=== PATIENT | male | born 1995 | race African-American/Black ===

== ENCOUNTER 2025-05-03 11:25 | Outpatient (REF) | payer MEDICAID, SELFPAY ==
[2025-05-03 13:49] LABS: Anion Gap 9 (12-20); Blood Urea Nitrogen 13 mg/dL (9-16); Calcium 9.8 mg/dL (8.4-10.2); Carbon Dioxide 29 mmol/L (22-29); Chloride 109 mmol/L (96-108); Estimated Glomerular Filt Rate > 60; Potassium 4.4 mmol/L (3.3-5.1); Sodium 143 mmol/L (135-145)
[2025-05-03 14:09] LABS: HBS Num1 5.78 mIU/mL (0-7.99); HBc Num1 0.07 S/CO (0.00-0.79); HBsAGNum1 0.31 S/CO (0.00-0.99); HIV Num 1 0.05 S/CO (0.00-0.99); Hepatitis B Surface Antigen Negative (Negative); Syphilis Screen Reactive (Nonreactive); ~HepC Num1 0.11 S/CO (0.00-0.79); ~Hepatitis B Surface Antibody NONREACTIVE (Nonreactive); ~Hepatitis C Antibody Nonreactive (Nonreactive)
[2025-05-09 14:53] LABS: T.Pallidum Particle Agg Test Reactive (Nonreactive)
== END 2025-05-03 11:26 | disposition home or self-care (01) ==
LOC: HO.HHCL 11:25
PROVIDERS: PCP Nurse Practitioner; Visit Provider Nurse Practitioner
DX: Z11.59 Encounter for screening for other viral diseases (principal); Z11.4 Encounter for screening for human immunodeficiency virus [HIV]; Z11.3 Encounter for screening for infections with a predominantly sexual mode of transmission; K14.8 Other diseases of tongue
CPT/HCPCS: 36415; 80048; 86592; 86704; 86706; 86780; 86803; 87340; 87389

== ENCOUNTER 2025-07-06 15:00 | Outpatient (REF) | payer MEDICAID, SELFPAY ==
--- OUTSIDE RECORDS SUMMARY | 2025-07-04 14:45 | XMS_ITS | Encounter Summary ---
Author Organization [employer] Address [address] [facility] [address] [place] [id number] Care Team Providers Care Database Administrator Name Role Phone Unavailable Primary Care Provider Unavailabl e Reason for Referral * Consultation (Routine) - Authorized Specialty Diagnoses / Procedures Referred By Contac t Referred To Contact Dental Director Of Assisted Living / Dentistry Diagnoses Healthcare maintenance Tad Owen MD [address] [place] [phone] Phone: tel: fax: Referral ID Status Reason Start Date Expiration Date Visits Requested Visits Authorized [id number] Authorized Consult and Treat 07/06/2025 07/06/2026 1 1 Encounter Details Date Type Department Care Team (Late st Contact Info) Description 07/04/2025 2:45 PM EDT Office Visit [facility] [address] [place] [address] [phone] Tad Owen MD [address] [place] [phone] RPR positive (Primary Dx); Encounter for immunization; Primary syphilis; Healthcare maintenance; Marijuana use Social History Tobacco Use Types Packs/Day Years Used Date Smoking Tobacco: Never Passive Smoke Exposure: Never Smokeless Tobacco: Never Alcohol Answer Date Recorded How often do you have a drink containing alcohol ? 1 05/03/2025 How many drinks containing a lcohol do you have on a typical day when you are drinking? 0 05/03/2025 How often do you have six or more drinks on one occasion? 0 05/03/2025 Depression Answer Date Recorded Patient Health Questionnaire-9 Score 1 07/04/2025 Patient Health Questionnaire-9 Score 1 07/04/2025 Last PHQ-9: Questionnaire Data Not on file 1 Housing Stability Answer Date Recorded What is your housing situation today? I have kathy espinoza 07/04/[address] you li ve. Do you have problems with any of the following? None of the above 07/04/2025 Food Insecurity Answer Date Recorded Within the past 12 months, y ou worried that your food would run out before you got money to buy more: Never True 07/04/2025 Within the past 12 months,th e food you bought just didn't last and you didn't have enough money to get more: Never True 10/2024 Transportation Answer Date Recorded In the past 12 months, has l ack of transportation kept you from medical appts, meetings, work or from getting things needed for daily living? No 07/04/2025 Utilities Answer Date Recorded In the past 12 months, has t he electric, gas, oil or water company threatened to shut off services in your home? No 07/04/2025 Depression Answer Date Recorded Patient Health Questionnaire-2 Score 0 07/04/2025 Internet Access Answer Date Recorded Internet Access Q1 Yes 07/04/2025 Internet Access Q2 Not on file 07/04/2025 Sex and Gender Information Value Date Recorded Sex Assigned at Male 09/14/2024 1:02 PM EST Legal Sex Male 11:24 AM EDT Gender Identity Male 09/14/2024 1:02 PM EST Sexual Orientation Choose not to disclose 2023 1:02 PM EST documented as of this encounter Last Filed Vital Signs Vital Sign Reading Time Taken Comments Blood Pressure 120/76 07/04/2025 2:59 PM EDT Pulse 70 07/04/2025 2:59 PM EDT Temperature 36.8 C (98.3 F) 07/04/2025 2:59 PM EDT Respiratory Rate 16 07/04/2025 2:59 PM EDT Oxygen Saturation - - Inhaled Oxygen Concentration - - Weight 68.2 kg (150 lb 4 oz) 07/04/2025 2:59 PM EDT Height 167 cm (5' 5.75 ) 07/04/2025 2:59 PM EDT Body Mass Index 24.44 07/04/2025 2:59 PM EDT documented in this encounter Functional Status * Over the past 2 weeks, how often have you been bothered by any of the following problems? Question Answer Date of Assessment Author Patient Health Questionnaire-2 Score 0 10/2024 3:09 PM EDT Estuardo Lynn MA * Little interest or pleasure in doing things Answer Date of Assessment Author Not at all 07/04/2025 3:09 PM EDT Izabela Lynn MA * Feeling down, depressed, or hopeless Answer Date of Assessment Author Not at all 07/04/2025 3:09 PM EDT Izabela Lynn MA * Trouble falling or staying asleep, or sleeping too much Answer Date of Assessment Author Several days 07/04/2025 3:09 PM EDT Izabela Lynn MA * Feeling tired or having little energy Answer Date of Assessment Author Not at all 07/04/2025 3:09 PM EDT Izabela Lynn MA * Poor appetite or overeating Answer Date of Assessment Author Not at all 07/04/2025 3:09 PM EDT Izabela Lynn MA * Feeling bad about yourself - or that you are a failure or have let yourself or your family down Answer Date of Assessment Author Not at all 07/04/2025 3:09 PM EDT Izabela Lynn MA * Trouble concentrating on things, such as reading the newspaper or watching television Answer Date of Assessment Author Not at all 07/04/2025 3:09 PM EDT Izabela Lynn MA * Moving or speaking so slowly that other people could have noticed? Or the opposite - being so fidgety or restless that you have been moving around a lot more than usual. Answer Date of Assessment Author Not at all 07/04/2025 3:09 PM EDT Izabela Lynn MA * Thoughts that you would be better off or hurting yourself in some way Answer Date of Assessment Author Not at all 07/04/2025 3:09 PM EDT Izabela Lynn MA * Patient Health Questionnaire-9 Score Answer Date of Assessment Author 1 07/04/2025 3:09 PM EDT Izabela Lynn MA * How difficult have these problems made it for you to do your work, take care of things at home, or get along with other people? Answer Date of Assessment Author Not difficult at all 07/04/2025 3:09 PM EDT Estuardo Lynn MA * Over the last 2 weeks, how often have you been bothered by any of the following problems? Question Answer Date of Assessment Author Feeling nervous, anxious, or on edge 0 10/2024 3:10 PM EDT Estuardo Lynn MA Not being able to stop or co ntrol worrying 0 07/04/2025 3:10 PM EDT Estuardo Lynn MA Worrying too much about diff erent things 0 07/04/2025 3:10 PM EDT Estuardo Lynn MA Trouble relaxing 0 07/04/2025 3:10 PM EDT Estuardo Platt MA Being so restless that it is hard to sit still 0 07/04/2025 3:10 PM EDT Estuardo Lynn MA Becoming easily annoyed or irritable 0 10/2024 3:10 PM EDT Estuardo Lynn MA Feeling afraid as if somethi ng awful might happen 0 07/04/2025 3:10 PM EDT Estuardo Lynn MA DARA-7 Total Score 0 07/04/2025 3:10 PM EDT Estuardo Lynn MA documented as of this encounter Progress Notes * Tad Owen MD - 07/04/2025 2:45 PM EDT Subjective: Valerio Zheng is a 29 y.o. male who presents to the office for a new patient visit. He recently relocated from [place] to [facility] and seeking to establish care. He is with his partner Refugio- has accompanied him for the visit. He was recently evaluated at the [facility] approximately 1 month ago and STD testing showed syphilis, he has not receive any treatment. He is willing to receive the treatment therapy today along with PREP.He continues with the sublingual cyst, reports minor discomfort while eating; however, no other symptoms observed during the visit. No Skin rash, Fever, Sore throat, Fatigue, or Hair loss, muscle aches, or weight loss. No complaints of chest pain, shortness of breath, abdominal pain, pain with urination No complaints during the visit, no current medication therapy. Interim history: Current concerns: No concerns during the visit. Problem List[1] Primary Syphilis Surgical History[2] None Family History[3] Grandmother- maternal T1DM No family history of Heart disease, hypertension, Osteoporosis, Thyroid problem. No current medication use nor OTC use. Social History Living situation: [facility] Employment/Education: [employer] Diet/exercise: regular/ no exercise Substance use: -alcohol- none -tobacco- marijuana- daily 6 times per day -opioids- none Sexual activity: yes- one partner Mental health: Patient Health Questionnaire-9 Score: 1 (07/04/2025 3:09 PM) Patient Health Questionnaire-2 Score: 0 (07/04/2025 3:09 PM) Thoughts that you would be better off or hurting yourself in some way: Not at all (07/04/2025 3:09 PM) Allergies[4]NKA Review of Systems Constitutional: Negative. HENT: Mouth cyst Eyes: Negative. Respiratory: Negative. Cardiovascular: Negative. Gastrointestinal: Negative. Endocrine: Negative. Genitourinary: Negative. Musculoskeletal: Negative. Skin: Negative. Allergic/Immunologic: Negative. Neurological: Negative. Hematological: Negative. Psychiatric/Behavioral: Negative. Vitals: 07/04/25 1459 BP: 120/76 BP Location: Left arm Patient Position: Sitting BP Cuff Size: Adult Pulse: 70 Resp: 16 Temp: 98.3 ??F (36.8 ??C) TempSrc: Oral Weight: 150 lb 4 oz (68.2 kg) Height: 5' 5.75 (1.67 m) Physical Exam Constitutional: Appearance: Normal appearance. HENT: Head: Normocephalic. Right Ear: Tympanic membrane, ear canal and external ear normal. Left Ear: Tympanic membrane, ear canal and external ear normal. Nose: Nose normal. Mouth/Throat: Mouth: Mucous membranes are moist. Comments: sublingual cyst Eyes: General: Lids are normal. Extraocular Movements: Extraocular movements intact. Conjunctiva/sclera: Conjunctivae normal. Pupils: Pupils are equal, round, and reactive to light. Neck: Comments: Submandibular lymphadenopathy Cardiovascular: Rate and Rhythm: Normal rate and regular rhythm. Heart sounds: Normal heart sounds, S1 normal and S2 normal. Pulmonary: Effort: Pulmonary effort is normal. Breath sounds: Normal breath sounds. Abdominal: General: Abdomen is flat. Bowel sounds are normal. Palpations: Abdomen is soft. Musculoskeletal: General: Normal range of motion. Cervical back: Full passive range of motion without pain. Lymphadenopathy: Cervical: Cervical adenopathy present. Skin: General: Skin is warm. Neurological: General: No focal deficit present. Mental Status: He is alert and oriented to person, place, and time. Psychiatric: Attention and Perception: Attention normal. Mood and Affect: Mood and affect normal. Speech: Speech normal. Behavior: Behavior normal. Behavior is cooperative. Cognition and Memory: Cognition normal. Assessment & Plan RPR positive Encounter for immunization Orders: FLU VACCINE TRIVALENT [id number] (Fluarix) 19 yrs + Primary syphilis PREP- in agreement with the use, he will be seen in [facility] Encouraged to return with new symptoms. Strongly encouraged partner testing. Orders: Penicillin G Benzathine suspension prefilled syringe 4 mL Healthcare maintenance Internal referral sent for dental care, eye care, and [facility] for initiation of PREP. Refugio, his partner requested to visit [facility] for testing and treatment and verbalizes understanding. Marijuana use Encouraged decreased use Routine Screening and Health Maintenance Optometry: No- requires an eye exam Dental: No requires referal ASCVD risk: 29 y.o. male Lab Review: labs reviewed, I note that confirmatory Syphilis test Routine Cancer Screening - Colon CA: N/A Lung CA: N/A PSA: N/A Current Medications[5] No medications. Immunization History Administered Date(s) Administered Influenza, seasonal, injectable, preservative free 07/04/2025 Follow up in about 6 months (around 01/02/2026), or f/u post new patient visit.. [facility] MAID SUPERVISOR Attestation MAID SUPERVISOR Resident Attestation: Patient was seen and evaluated by Albertina PAL,and Tad Owen MD who has reviewed my assessment and plan. [1] Patient Active Problem List Diagnosis RPR positive Primary syphilis Healthcare maintenance Marijuana use [2] Past Surgical History: Procedure Laterality Date MOUTH SURGERY Frenectomy [3] No family history on file. [4] No Known Allergies [5] No current outpatient medications on file. No current facility-administered medications for this visit. documented in this encounter Miscellaneous Notes * Assessment & Plan Note - Albertina Argueta NP - 07/04/2025 3:52 PM EDT Associated Problem(s): Healthcare maintenance Internal referral sent for dental care, eye care, and [facility] for initiation of PREP. Refugio, his partner requested to visit [facility] for testing and treatment and verbalizes understanding. * Assessment & Plan Note - Tad Owen MD - 07/04/2025 2:45 PM EDTAssociated Problem(s): RPR positive * Assessment & Plan Note - Tad Owen MD - 07/04/2025 2:45 PM EDTAssociated Problem(s): Primary syphilis PREP- in agreement with the use, he will be seen in [place] Encouraged to return with new symptoms. Strongly encouraged partner testing. Orders: Penicillin G Benzathine suspension prefilled syringe 4 mL * Assessment & Plan Note - Tad Owen MD - 07/04/2025 2:45 PM EDTAssociated Problem(s): Healthcare maintenance Internal referral sent for dental care, eye care, and [facility] for initiation of PREP. Refugio, his partner requested to visit [facility] for testing and treatment and verbalizes understanding. * Assessment & Plan Note - Tad Owen MD - 07/04/2025 2:45 PM EDTAssociated Problem(s): Marijuana use Encouraged decreased use documented in this encounter Plan of Treatment Upcoming Encounters Date Type Department Care Team (Late st Contact Info) Description 07/20/2025 10:30 AM EDT Clinical Support [facility] [address] [place] [phone] Scheduled Referrals Name Type Priority Associated Diagnoses Orde r Schedule Referral to [facility] Dental Adult Outpatient Referral Routine Healthcare maintenance Expected: 07/06/2025 (Approximate), Expires: 07/04/2026 documented as of this encounter Visit Diagnoses Diagnosis RPR positive- Primary Encounter for immunization Primary syphilis Early syphilis, genital (primary) Healthcare maintenance Marijuana use documented in this encounter Administered Medications Inactive Administered Medications - up to 3 most recent administrations Medication Order MAR Action Action Date Dose Rate Site Penicillin G Benzathine suspension prefilled syringe 4 mL 4 mL, Intramuscular, Once, On Wed07/04/25 at 1545, For 1 doseIndications:Primary syphilis Given 07/04/2025 3:49 PM EDT 4 mL Left Upper Buttock documented in this encounter Additional Health Concerns Assessment Noted Time PHQ-9 Depression Total Score: 1 07/04/20 3:09 PM EDT documented as of this encounter
--- OUTSIDE RECORDS SUMMARY | 2025-07-06 14:20 | XMS_ITS | Encounter Summary ---
Author Organization [employer] Address [address] [facility] [address] [place] [address] Care Team Providers Care Supervisor Locomotive Name Role Phone Jc Argueta PELLETISING EXTRUDER OPERATOR Primary Care Provider Encounter Details Date Type Department Care Team (Late st Contact Info) Description 07/06/2025 2:20 PM EDT Office Visit [facility] [address] [place], [place] [phone] On pre-exposure prophylaxis for HIV (Primary Dx); Elevated blood pressure reading without diagnosis of hypertension; Need for hepatitis B vaccination; Encounter for immunization Social History Tobacco Use Types Packs/Day Years [...] Sign Reading Time Taken Comments Blood Pressure 142/94 07/06/2025 2:48 PM EDT Pulse 100 07/06/2025 2:28 PM EDT Temperature 36.9 C (98.4 F) 07/06/2025 2:28 PM EDT Respiratory Rate 16 07/06/2025 2:28 PM EDT Oxygen Saturation - - Inhaled Oxygen Concentration - - Weight 63.5 kg (140 lb) 07/06/2025 2:28 PM EDT Height - - Body Mass Index 22.77 07/04/2025 2:59 PM EDT documented in this encounter Plan of Treatment Upcoming Encounters Date Type Department Care Team (Late st Contact Info) Description 07/20/2025 10:30 AM EDT Clinical Support [facility] [address] [place] [phone] Scheduled Orders Name Type Priority Associated Diagnoses Orde r Schedule HIV-1/2 Antigen and Antibodies, Fourth Generation, with Reflexes Lab Routine On pre-exposure prophylaxis for HIV Expected: 07/06/2025 (Approximate), Expires: 07/06/2026 HIV-1 RNA, Quantitative, Real-Time PCR Lab Routine On pre-exposure prophylaxis for HIV Expected: 07/06/2025 (Approximate), Expires: 07/06/2026 Basic Metabolic Panel Lab Routine On pre-exposure prophylaxis for HIV Expected: 07/06/2025 (Approximate), Expires: 07/06/2026 documented as of this encounter Visit Diagnoses Diagnosis On pre-exposure prophylaxis for HIV- Primary Elevated blood pressure reading without diagnosis of hypertension Need for hepatitis B vaccination Encounter for immunization documented in this encounter Additional Health Concerns Assessment Noted Time PHQ-9 Depression Total Score: 1 07/04/20 25 3:09 PM EDT documented as of this encounter Care Teams Supervisor Locomotive Relationship Specialty Start Date End Date Jc Argueta NP [address] [place] [phone] PCP - General Nurse Practitioner 07/06/25 documented as of this encounter
--- OUTSIDE RECORDS SUMMARY | 2025-07-06 15:05 | XMS_ITS | Encounter Summary ---
Author Organization [employer] Address [address] [facility] [address]t [place] [address] Care Team Providers Care Stapler Hand Name Role Phone Unavailable Primary Care Provider Unavailabl e Encounter Details Date Type Department Care Team (Late st Contact Info) Description 07/04/2025 Telephone [facility] [address] [place] [phone] Mary Aranda RN Social History Tobacco Use Types Packs/Day Years [...] is your housing situation today? I have kathymeelcio espinoza 07/04/[address] you [...] t he electric, gas, oil or water Inventalator threatened to shut off services in your [...] PM EST documented as of this encounter Miscellaneous Notes * Telephone Encounter - Mary Aranda RN - 07/04/2025 2:30 PM EDT Tc returned back to [facility] who reports they got in contact with pt and they have no hx of a previous infection. [facility] reports that pt stage is primary syphilis. [facility] reports that the lesion under the tongue could be due to the infection. [facility] reports that for tx could be single dose of Penicillin 2.4 mu or Doxycycline 100 mg BID for 14 days. [facility] requested once pt received tx to call them back to let them know and still fill out the form online as well. Currency Examiner has attempted multiple times to contact ptwith no response in regards to have them come in to receive treatment. Pt has a new pt appointment at 2:45 pm and message sent to provider for review. documented in this encounter Plan of Treatment Upcoming Encounters Date Type Department Care Team (Late st Contact Info) Description 07/20/2025 10:30 AM EDT Clinical Support [facility] [address] [place] [phone] documented as of this encounter Visit Diagnoses Not on filedocumented in this encounter Additional Health Concerns Assessment Noted Time PHQ-9 Depression Total Score: 1 07/04/20 25 3:09 PM EDT documented as of this encounter
--- OUTSIDE RECORDS SUMMARY | 2025-07-06 15:05 | XMS_ITS | Clinical Summary ---
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 Strongly encouraged partner testing. Orders: Penicillin G Benzathine suspension prefilled syringe 4 mL Healthcare maintenance 07/04/2025 Assessment & Plan (07/06/2025 6:27 AM EDT): Internal referral sent for dental care, eye care, and CARTON FORMING MACHINE OPERATOR for initiation of PREP. Refugio, his partner requested to visit CARTON FORMING MACHINE OPERATOR for testing and treatment and verbalizes understanding. Assessment & Plan (07/04/2025 3:52 PM EDT): Internal referral sent for dental care, eye care, and CARTON FORMING MACHINE OPERATOR for initiation of PREP. Refugio, his partner requested to visit CARTON FORMING MACHINE OPERATOR for testing and treatment and verbalizes understanding. Marijuana use 07/04/2025 Assessment & Plan (07/06/2025 6:27 AM EDT): Encouraged decreased use Encounters Date Type Department Care Team Description 07/06/2025 2:20 PM EDT Office Visit [facility] [place] [address] On pre-exposure prophylaxis for HIV (Primary Dx); Elevated blood pressure reading without diagnosis of hypertension; Need for hepatitis B vaccination; Encounter for immunization 07/06/2025 Travel 07/04/2025 2:45 PM EDT Office Visit [facility] [place] [address] Tad Owen MD RPR positive (Primary Dx); Encounter for immunization; Primary syphilis; Healthcare maintenance; Marijuana use 07/04/[address] [facility] [address] Tad Owen MD 07/04/2025 Travel 07/04/[address] [address] Mary Aranda RN 06/08/[address] [address] Mary Aranda RN 05/29/2025 Orders Only [address] [address] Mallory Barajas NP 05/25/2025 Orders Only [address] [address] Mallory Barajas NP 05/21/[address] [address] Mary Aranda RN 05/09/2025 Results Follow-Up [address] [address] Mallory Barajas NP Confirmatory Syphilis Profile 05/07/2025 Results Follow-Up [facility] [address] Mallory Barajas NP Basic Metabolic Panel, Syphilis Screen, HIV-1/2 Antigen and Antibodies, Fourth Generation, with Reflexes, Additional followed-up results: 4 05/03/2025 1:00 PM EDT Office Visit [facility] [address] [place] [address] Quan-Concepcoin , Brisa, DDS 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) 05/03/2025 Orders Only [facility] [address] [place] [address] Mallory Barajas NP 05/02/2025 7:40 PM EDT Office Visit [facility] [address] [place] [address] Mallory Barajas NP Cyst, sublingual (Primary Dx); Screen for sexually transmitted diseases 05/02/2025 Travel from Last 3 Months Immunizations Immunization Administration Dates Next Due HepB-CpG 07/06/2025 Influenza, seasonal, injectable, preservative fr ee 07/04/2025 Social History Tobacco Use Types Packs/Day Years [...] not to disclose 2023 1:02 PM EST Last Filed Vital Signs Vital Sign Reading Time Taken Comments Blood Pressure 142/94 07/06/2025 2:48 PM EDT Pulse 100 07/06/2025 2:28 PM EDT Temperature 36.9 C (98.4 F) 07/06/2025 2:28 PM EDT Respiratory Rate 16 07/06/2025 2:28 PM EDT Oxygen Saturation 98% 05/02/2025 7:52 PM EDT Inhaled Oxygen Concentration - - Weight 63.5 kg (140 lb) 07/06/2025 2:28 PM EDT Height 167 cm (5' 5.75 ) 07/04/2025 2:59 PM EDT Body Mass Index 22.77 07/04/2025 2:59 PM EDT Plan of Treatment Upcoming Encounters Date Type Department Care Team (Late st Contact Info) Description 07/20/2025 10:30 AM EDT Clinical Support [facility] [address] [place] [phone] Health Maintenance Due Date Last Done Comments Dental Oral Exam 1995 Dental Prophylaxis 1995 Dental X-Ray: Bitewings 1995 HPV Vaccines (1 - Male 3-dos e series) 2010 DTaP/Tdap/Td Vaccines (1 - Tdap) 2014 COVID-19 Vaccine (1 - 2023-2 5 season) 2025 Hepatitis B Vaccines (2 of 2 - CpG 2-dose series) 08/03/2025 07/06/2025 Family Planning (PISQ) 05/03/2026 05/03/2025 Alcohol/Substance Use Screening 07/04/2026 07/04/2025 Depression Screening 07/04/2026 07/04/2025, 07/04/2025 Disability Screening 07/04/2026 07/04/2025 SDOH Screening 07/04/2026 07/04/2025 Tobacco Screening 07/04/2026 07/04/2025 Dental X-Ray: Full Mouth 05/04/2028 05/03/2025 Zoster Vaccines (1 of 2) 2045 RSV Patients and Patients Aged 60 years or older (1 - 1-dose 75+ series) 2070 HIV Screening Completed 05/03/2025 Hepatitis C Screening Completed 05/03/2025 Influenza Vaccine Completed 07/04/2025 HIB Vaccines Aged Out No longer eligi ble based on patient's age to complete this topic Hepatitis A Vaccines Aged Out No long er eligible based on patient's age to complete this topic IPV Vaccines Aged Out No longer eligi ble based on patient's age to complete this topic Meningococcal B Vaccine Aged Out No l onger eligible based on patient's age to complete this topic Meningococcal Vaccine Aged Out No christin yvonne eligible based on patient's age to complete this topic Pneumococcal Vaccine: Pediatrics (0 to 5 Years) and At-Risk Patients (6 to 49) Years Aged Out No longer eligible b ased on patient's age to complete this topic RSV under 20 months Aged Out No longe r eligible based on patient's age to complete this topic Rotavirus Vaccines Aged Out No longer eligible based on patient's age to complete this topic Procedures Procedure Name Priority Date/Time Associated Diagnosis Comments CASE PRESENTATION, DETAILED AND EXTENSIVE TREATMENT PLANNING Routine 05/03/2025 1:00 PM EDT Mucous retention cyst of salivary gland PANORAMIC RADIOGRAPHIC IMAGE Routine 05/03/2025 1:00 PM EDT Mucous retention cyst of salivary gland PALLIATIVE (EMERGENCY) TREATMENT OF DENTAL PAIN - MINOR PROCEDURE Routine 05/03/2025 1:00 PM EDT Mucous retention cyst of salivary gland CONFIRMATORY SYPHILIS PROFILE Routine 05/03/2025 11:30 AM EDT HEPATITIS C AB W/REFL TO HCV RNA, QN, PCR Routine 05/03/2025 11:30 AM EDT Screen for sexually transmitted diseases HEPATITIS B SURFACE ANTIBODY, QUALITATIVE Routine 05/03/2025 11:30 AM EDT Screen for sexually transmitted diseases HEPATITIS B CORE AB TOTAL Routine 05/03/2025 11:30 AM EDT Screen for sexually transmitted diseases HEPATITIS B SURFACE ANTIGEN, EIA Routine 05/03/2025 11:30 AM EDT Screen for sexually transmitted diseases HIV 1/2 ANTIGEN/ANTIBODY, FOURTH GENERATION W/RFL Routine 05/03/2025 11:30 AM EDT Screen for sexually transmitted diseases SYPHILIS SCREEN Routine 05/03/2025 11:30 AM EDT Screen for sexually transmitted diseases BASIC METABOLIC PANEL Routine 05/03/2025 11:30 AM EDT Cyst, sublingual from Last 3 Months Results * (ABNORMAL) Confirmatory Syphilis Profile (05/03/2025 11:30 AM EDT) Rapid Plasma Reagin, Quant Reactive 1:64(A) Nonreactive [facility] Treponema pallidum Antibody, Particle Agglutination Reactive(A) Nonreactive [facility] Comment:Testing performed at : [address] [address] 05/03/2025 11:3 0 AM EDT 05/03/2025 2:10 PM EDT Red Seraphim DRIVER'S EDUCATION INSTRUCTOR LAB BLOOD ORDERABLES Final Resu lt Performing Organization Address City/State/[facility] Co de Phone Number [facility] [address] [place] [phone] * (ABNORMAL) Syphilis Screen (05/03/2025 11:30 AM EDT) Syphilis Screen Reactive( A) Nonreactive [facility] Comment:Reactive specimens a re sent to the [facility] confirmat[facility] tests. Blood Venous blood specimen / Unknown 05/03/2025 11:30 AM EDT 05/03/2025 12:57 PM EDT us Mallory Metz DRIVER'S EDUCATION INSTRUCTOR LAB BLOOD ORDERABLES Final Resu lt Performing Organization Address [facility] Co de Phone Number [facility] [address] [place] [address] [phone] * Hepatitis C Antibody with Reflex to HCV, RNA, Quantitative, Real-Time PCR (05/03/2025 11:30 AM EDT) Hepatitis C Antibody Nonreactive Nonreactive [facility] Comment:Antibodies to HCV no t detected; does not exclude early acuteHCV infection. Blood Venous blood specimen / Unknown 05/03/2025 11:30 AM EDT 05/03/2025 12:57 PM EDT [facility]OD ORDERABLES Final Resu lt Performing Organization Address [facility] Co de Phone Number [facility] [address] [place] [phone] * Hepatitis B surface antigen, EIA (05/03/2025 11:30 AM EDT) Hepatitis B Surface Ag Negative Negative [facility] Blood Venous blood specimen / Unknown 05/03/2025 11:30 AM EDT 05/03/2025 12:57 PM EDT us [facility] BLOOD ORDERABLES Final Resu lt Performing Organization Address [facility] Co de Phone Number [facility] [address] [place] [phone] * Hepatitis B Core Antibody, Total (05/03/2025 11:30 AM EDT) Hepatitis B Core Antibody Nonreactive Nonreactive [facility] Blood Venous blood specimen / Unknown 05/03/2025 11:30 AM EDT 05/03/2025 12:57 PM EDT us Mallory Metz DRIVER'S EDUCATION INSTRUCTOR LAB BLOOD ORDERABLES Final Resu lt Performing Organization Address [facility] de Phone Number [facility] [address] [place] [phone] * HIV-1/2 Antigen and Antibodies, Fourth Generation, with Reflexes (05/03/2025 11:30 AM EDT) HIV AB/AG Nonreactive Nonreactive [facility] Comment:HIV-1 p24 Ag and/or HIV-1/HIV-2 Ab not detected.A test result that is nonreactive does not exclude thepossibility of exposure to or infection with HIV-1 and/orHIV-2. Nonreactive results in this assay for individualswith prior exposure to HIV-1 and/or HIV-2 may be due toantigen and antibody levels that are below the limit ofdetection of this assay.The [employer] HIV Ag/Ab Combo assay result andsupplemental assay results should be interpreted inconjunction with the patient's clinical presentation,history and other laboratory results. If the results areinconsistent with clinical evidence, additional testing issuggested to confirm the result. Blood Venous blood specimen / Unknown 05/03/2025 11:30 AM EDT 05/03/2025 12:57 PM EDT Mallory Barajas DRIVER'S EDUCATION INSTRUCTOR LAB BLOOD ORDERABLES Final Resu lt Performing Organization Address [facility] de Phone Number [facility] [address] [place] [address] [phone] * Hepatitis B Surface Antibody, Qualitative (05/03/2025 11:30 AM EDT) ~Hepatitis B Surface Antibody NONREACTIVE Nonreactive [facility] Comment:Nonreactive: < 8.00 mIU/mL Blood Venous blood specimen / Unknown 05/03/2025 11:30 AM EDT 05/03/2025 12:57 PM EDT [facility] BLOOD ORDERABLES Final Resu lt Performing Organization Address [facility] Co de Phone Number [facility] [address] [place] [phone] [phone] * (ABNORMAL) Basic Metabolic Panel (05/03/2025 11:30 AM EDT) Sodium 143 135 - 145 mmol/L [facility] Potassium 4.4 3.3 - 5.1 mmol/L [facility] Chloride 109(H) 96 - 108 mmol/L [facility] Carbon Dioxide 29 22 - 29 mmol/L [facility] Anion Gap 9(L) 12 - 20 [facility] Urea Nitrogen (BUN) 13 9 - 16 mg/dL [facility] Creatinine, Serum 1.11 0.5 - 1.4 mg/dL [facility] Estimated Glomerular Filt Rate >60 [facility] Comment:Chronic Kidney Disea se: Estimated GFR < 60 mL/min/[id number] Kidney Disease: Estimated GFR < 15 mL/min/1.73m2 Glucose 74 60 - 115 mg/dL [facility] Calcium 9.8 8.4 - 10.2 mg/dL [facility] Blood Venous blood specimen / Unknown 05/03/2025 11:30 AM EDT 05/03/2025 12:57 PM EDT us Mallory Barajas NP LAB BLOOD ORDERABLES Final Resu lt [facility] [address] [place] [address] [phone] from Last 3 Months Insurance [facility] ADULT Care Teams Card Doffer Relationship Specialty Start Date End Date Jc Argueta NP [address] [place], [place] [phone] PCP - General Nurse Practitioner 07/06/25
--- OUTSIDE RECORDS SUMMARY | 2025-07-06 15:05 | XMS_ITS | Encounter Summary ---
Author Organization [employer] Address [address] [facility] 7t [place] [address] Care Team Providers Care Quality Assurance Project Manager Name Role Phone Jc Argueta NP Primary Care Provider [phone] Encounter Details Date Type Department Care Team (Late st Contact Info) Description 05/29/2025 Orders Only [facility] [address] [place] [phone] Mallory Barajas NP [address] [place] [address] Social History Tobacco Use Types Packs/Day Years [...] more drinks on one occasion? 0 05/03/2025 Sex and Gender Information Value Date Recorded Sex Assigned at Male 09/14/2024 1:02 PM EST Legal Sex Male 11:24 AM EDT Gender Identity Male 09/14/2024 1:02 PM EST Sexual Orientation Choose not to disclose 2023 1:02 PM EST documented as of this encounter Plan of Treatment Upcoming Encounters Date Type Department Care Team (Late st Contact Info) Description 07/20/2025 10:30 AM EDT Clinical Support [facility] [address] [place] [phone] documented as of this encounter Visit Diagnoses Not on filedocumented in this encounter Care Teams Quality Assurance Project Manager Relationship Specialty Start Date End Date Jc Argueta NP [address] [place] [address] PCP - General Nurse Practitioner 07/06/25 documented as of this encounter
--- OUTSIDE RECORDS SUMMARY | 2025-07-06 15:05 | XMS_ITS | Encounter Summary ---
Author Organization [employer] Address [address] [facility] 7t [place] [address] Care Team Providers Care Professional Application Designer Name Role Phone Unavailable Primary Care Provider Unavailabl e Encounter Details Date Type Department Care Team (Latest Contact Info) Description 07/04/2025 Travel Social History Tobacco Use Types Packs/Day Years [...] PM EST documented as of this encounter Functional Status * Over the [...] Trouble relaxing 0 07/04/2025 3:10 PM EDT S jamieEstuardo [place] Being so restless that it is [...] Lynn [place] documented as of this encounter Plan of Treatment Upcoming Encounters Date Type Department Care Team (Late st Contact Info) Description 07/20/2025 10:30 AM EDT Clinical Support [address] [address] documented as of this encounter Visit Diagnoses Not on filedocumented in this encounter Additional Health Concerns Assessment Noted Time PHQ-9 Depression Total Score: 1 07/04/20 25 3:09 PM EDT documented as of this encounter
--- OUTSIDE RECORDS SUMMARY | 2025-07-06 15:05 | XMS_ITS | Encounter Summary ---
Author Organization [employer] Address [address] [facility] 7t [place] [address] Care Team Providers Care Security Assistant Name Role Phone Jc Argueta NP Primary Care Provider [phone] Encounter Details Date Type Department Care Team (Late st Contact Info) Description 05/25/2025 Orders Only [facility] [address] [place] [phone] Mallory Barajas NP [address] [place] [address] Social History Tobacco Use Types Packs/Day Years [...] Description 07/20/2025 10:30 AM EDT Clinical Support [facility] [address] [place] [phone] documented as of this encounter Visit Diagnoses Not on filedocumented in this encounter Care Teams Security Assistant Relationship Specialty Start Date End Date Jc Argueta NP [address] [place] [address] PCP - General Nurse Practitioner 07/06/25 documented as of this encounter
--- OUTSIDE RECORDS SUMMARY | 2025-07-06 15:05 | XMS_ITS | Encounter Summary ---
Author Organization [email or web address] Address [address] [facility] 7t [place] [address] Care Team Providers Care Director Global Sales Name Role Phone Cierramelecio Lizetdarcy CALENDERER Primary Care Provider [phone] Encounter Details Date Type Department Care Team (Latest Contact Info) Description 07/06/2025 Travel Social History Tobacco Use Types Packs/Day [...] is your housing situation today? I have kathymelecio espinoza 07/04/[address] you [...] Description 07/20/2025 10:30 AM EDT Clinical Support [facility] [address] [place] [phone] documented as of this encounter Visit Diagnoses Not on filedocumented in this encounter Additional Health Concerns Assessment Noted Time PHQ-9 Depression Total Score: 1 07/04/20 25 3:09 PM EDT documented as of this encounter Care Teams Director Global Sales Relationship Specialty Start Date End Date Jc Argueta NP [address] [place] [address] PCP - General Nurse Practitioner 07/06/25 documented as of this encounter
--- OUTSIDE RECORDS SUMMARY | 2025-07-06 15:05 | XMS_ITS | Encounter Summary ---
Author Organization [email or web address] Address [address] [facility] 7t [place] [address] Care Team Providers Care Aws Architect Name Role Phone Unavailable Primary Care Provider Unavailabl e Encounter Details Date Type Department Care Team (Late st Contact Info) Description 07/04/2025 Telephone [facility] [address] [place], [place] [phone] Name, MD Tad [address] [place] [address] Social History Tobacco Use Types Packs/Day Years [...] 07/04/2025 3:09 PM EDT Estuardo Lynn MA documented as of this encounter Miscellaneous Notes * Telephone Encounter - Tad Owen MD - 07/04/2025 3:08 PM EDT Tc returned back to cristina who reports they got in contact with pt and they have no hx of a previous infection. Cristina reports that pt stage is primary syphilis. Cristina reports that the lesion under the tongue could be due to the infection. Cristina reports that for tx could be single dose of Penicillin 2.4 mu or Doxycycline 100 mg BID for 14 days. Cristina requested once pt received tx to call them back to let them know and still fill out the form online as well. Incident Response Consultant has attempted multiple times to contact ptwith no response in regards to have them come in to receive treatment. Pt has a new pt appointment at 2:45 pm and message sent to provider for review. documented in this encounter Plan of Treatment Upcoming Encounters Date Type Department Care Team (Late st Contact Info) Description 07/20/2025 10:30 AM EDT Clinical Support [address] [address] documented as of this encounter Visit Diagnoses Not on filedocumented in this encounter Additional Health Concerns Assessment Noted Time PHQ-9 Depression Total Score: 1 07/04/20 25 3:09 PM EDT documented as of this encounter
[2025-07-06 16:51] LABS: Anion Gap 11 (12-20); Blood Urea Nitrogen 15 mg/dL (9-16); Calcium 9.4 mg/dL (8.4-10.2); Carbon Dioxide 28 mmol/L (22-29); Chloride 103 mmol/L (96-108); Estimated Glomerular Filt Rate > 60; Potassium 3.2 mmol/L (3.3-5.1); Sodium 139 mmol/L (135-145)
[2025-07-07 04:05] LABS: HIV Num 1 0.06 S/CO (0.00-0.99)
[2025-07-09 22:38] LABS: HIV RNA PCR Qn Copies NOT DETECTED copies/mL (NOT DETECTED); HIV RNA PCR Qn Log Copies NOT DETECTED (NOT DETECTED)
== END 2025-07-06 15:01 | disposition home or self-care (01) ==
LOC: HO.HHCL 15:00
PROVIDERS: Visit Provider Nurse Practitioner Primary Care
DX: Z11.4 Encounter for screening for human immunodeficiency virus [HIV] (principal); Z79.899 Other long term (current) drug therapy
CPT/HCPCS: 36415; 80048; 87389; 87536